=== PATIENT | male | born 1985 | race African-American/Black ===

== ENCOUNTER 2020-08-29 10:35 | Emergency (ER) | payer OTHER ==
[~2020-08-29] VITALS: Ht 185.4 cm; Wt 72.6 kg
[2020-08-29] MEDS ORDERED: HYDROCODON-ACE1 EA10 PO (13:28)
== END 2020-08-29 14:12 | disposition home or self-care (01) ==
LOC: ED 10:35
DX: R07.89 Other chest pain (principal); M34.9 Systemic sclerosis, unspecified; F17.200 Nicotine dependence, unspecified, uncomplicated; Z91.018 Allergy to other foods
CPT/HCPCS: 71046; 71250; 96372; 99284-25; J1885

== ENCOUNTER 2021-05-29 17:45 | Emergency (ER) | payer SELFPAY ==
[~2021-05-29] VITALS: Ht 185.4 cm; Wt 72.6 kg
[~2021-05-29 17:45] MED LIST: HYDROCODON-ACE1 EA10 PO
[2021-05-29] MEDS ORDERED: PROMETHAZINE HC25 M1 PO (19:52)
[2021-05-31] MEDS ORDERED: DICYCLOMINE HCL20 MG PO (17:20)
[2021-05-31] MEDS ORDERED: ONDANSETRON ODT4 MG SL (17:20)
[2021-05-31] MEDS ORDERED: PROTONIX40 MG PO (17:22)
== END 2021-05-29 20:05 | disposition home or self-care (01) ==
LOC: ED 17:45
DX: R10.32 Left lower quadrant pain (principal); R10.31 Right lower quadrant pain; F17.200 Nicotine dependence, unspecified, uncomplicated; Z91.018 Allergy to other foods
CPT/HCPCS: 51798; 74177; 80053; 81001; 83690; 85025; 96375; 99284-25; A9270; J1170; J1200; J1790; J2405; J7030; Q9967; U0003

== ENCOUNTER → 2021-05-31 | Emergency (ER) | payer SELFPAY ==
[~2021-05-31] VITALS: Ht 185.4 cm; Wt 72.6 kg
[~2021-05-31] MED LIST changes: +DICYCLOMINE HCL20 MG PO; +ONDANSETRON ODT4 MG SL; +PROMETHAZINE HC25 M1 PO; +PROTONIX40 MG PO
--- OUTSIDE RECORDS SUMMARY | 2021-05-31 14:22 | XMS ---
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 Devon has no Care Guidelines for this patient. Rafaela VISIT COUNT (12 MO.) [facility] T[facility] 3 NOTE: Visits indicate total known visits. ED/C VISIT TRACKING (12 MO.) [facility] [place] [facility] COMPLAINT: - VOMITING 05/29/2021 17:46 [facility] [place] TYPE: Emergency COMPLAINT: - ABD PAIN,N/V 08/29/2020 10:36 [facility] [place] TYPE: Emergency COMPLAINT: - OTJ INJURED CHEST DIAGNOSES: - Systemic sclerosis, unspecified - Nicotine dependence, unspecified, uncomplicated - Allergy to other foods - Other chest pain INPATIENT VISIT TRACKING (12 MO.) No inpatient visits to display in this time frame [email or web address]
== END ==
LOC: ED 14:20
DX: K52.9 Noninfective gastroenteritis and colitis, unspecified (principal); F17.200 Nicotine dependence, unspecified, uncomplicated; Z91.018 Allergy to other foods
CPT/HCPCS: 36415; 74022; 80048; 81001; 83690; 85025; 96374; 96375; 99284-25; J1170; J1200; J1790; J2405

== ENCOUNTER 2021-06-02 11:22 | Emergency (ER) | payer SELFPAY ==
[~2021-06-02] VITALS: Ht 185.4 cm; Wt 72.6 kg
--- OUTSIDE RECORDS SUMMARY | 2021-06-02 11:24 | XMS ---
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 - 2 Visits in 30 Days CARE PROVIDERS There are no care providers on record at this time. Devon has no Care Guidelines for this patient. Rafaela [facility]12 MO.) [facility] T[facility] 4 NOTE: Visits indicate total known visits. ED/C VISIT TRACKING (12 MO.) [facility]21 11:[facility] [place] [facility] COMPLAINT: - ABDOMINAL PAIN 05/31/2021 14:20 [facility] [place] TYPE: Emergency COMPLAINT: - VOMITING 05/29/2021 17:46 [facility] [place] TYPE: Emergency COMPLAINT: - ABD PAIN,N/V DIAGNOSES: - Allergy to other foods - Right lower quadrant pain - Left lower quadrant pain - Nicotine dependence, unspecified, uncomplicated - Lower abdominal pain, unspecified 08/29/2020 10:36 [facility] [place] TYPE: Emergency COMPLAINT: - OTJ INJURED CHEST DIAGNOSES: - Systemic sclerosis, unspecified - Nicotine dependence, unspecified, uncomplicated - Allergy to other foods - Other chest pain INPATIENT VISIT TRACKING (12 MO.) No inpatient visits to display in this time frame [email or web address]
== END 2021-06-03 08:56 | disposition short-term general hospital (02) ==
LOC: ED 11:22
DX: I77.79 Dissection of other specified artery (principal); Z20.822 Contact with and (suspected) exposure to COVID-19; F17.200 Nicotine dependence, unspecified, uncomplicated; Z79.899 Other long term (current) drug therapy; Z91.018 Allergy to other foods
CPT/HCPCS: 36415; 74174; 74177; 80053; 81001; 83605; 83690; 85025; 85730; 96375; 96376; 99285-25; C9803; J1170; J1644; J1885; J2060; J2270; J2405; J7030; Q9967; U0003

== ENCOUNTER 2022-03-31 10:23 | Emergency (ER) | payer OTHER ==
[~2022-03-31] VITALS: Ht 185.4 cm; Wt 69.6 kg
== END 2022-03-31 12:42 | disposition home or self-care (01) ==
LOC: ED 10:23
DX: S44.01XA Injury of ulnar nerve at upper arm level, right arm, initial encounter (principal); S40.021A Contusion of right upper arm, initial encounter; F17.200 Nicotine dependence, unspecified, uncomplicated; Z91.018 Allergy to other foods; X58.XXXA Exposure to other specified factors, initial encounter
CPT/HCPCS: 73030; 73090; 99283-25; A9270

== ENCOUNTER 2023-04-13 06:15 | Emergency (ER) | payer OTHER ==
[~2023-04-13] VITALS: Ht 185.4 cm; Wt 68.0 kg
[2023-04-13 08:05] VITALS: BP 104/77
[2023-04-13] MEDS ORDERED: PREDNISONE20 MG PO (10:17)
[2023-04-13] MEDS ORDERED: CYCLOBENZAPRINE10 MG PO (10:17)
== END 2023-04-13 10:35 | disposition home or self-care (01) ==
LOC: ED 06:15
DX: S39.012A Strain of muscle, fascia and tendon of lower back, initial encounter (principal); S29.012A Strain of muscle and tendon of back wall of thorax, initial encounter; X50.3XXA Overexertion from repetitive movements, initial encounter; X50.0XXA Overexertion from strenuous movement or load, initial encounter; F17.200 Nicotine dependence, unspecified, uncomplicated; Z91.018 Allergy to other foods
CPT/HCPCS: 72070; 72100; 96374; 96375; 99283-25; J1100; J1885

== ENCOUNTER 2025-01-14 16:13 | Emergency (ER) | payer OTHER, BC ==
[~2025-01-14] VITALS: Ht 185.4 cm; Wt 71.0 kg
[~2025-01-14 16:13] MED LIST changes: +CYCLOBENZAPRINE10 MG PO; +PREDNISONE20 MG PO
[2025-01-14] MEDS ORDERED: DIPHTH,PERTUSS(ACELL),TET VAC 0.5 ML SYRINGE IM ONE (16:45)
[2025-01-14 18:40] VITALS: BP 150/99
== END 2025-01-14 18:44 | disposition home or self-care (01) ==
LOC: ED 16:13
DX: S61.215A Laceration without foreign body of left ring finger without damage to nail, initial encounter (principal); W31.89XA Contact with other specified machinery, initial encounter; F17.200 Nicotine dependence, unspecified, uncomplicated; Z91.018 Allergy to other foods; Z23 Encounter for immunization
CPT/HCPCS: 12001; 90471; 90715; 99282-25